=== PATIENT | male | born 1950 | race Caucasian/White ===

== ENCOUNTER 2016-10-17 18:43 | Emergency (ER) | payer MEDICARE ==
[2016-10-17] MEDS ORDERED: Ibuprofen 400 MG Tab PO ONE (19:36)
--- NOTE | 2016-10-17 19:48 | EDM.PDOC ---
ED HPI GENERAL MEDICAL PROBLEM - General Chief Complaint: General Stated Complaint: FEVER,COUGH X 1 WEEK Time Seen by Provider: 10/17/16 19:35 Source of Information: Reports: Patient, Family, Old Records History Limitations: Reports: No Limitations - History of Present Illness INITIAL COMMENTS - FREE TEXT/NARRATIVE: 65 yo male here with fever, cough, mild weakness, and mild SOB. Sx's were present to a lesser degree for several days before he was seen in the clinic 5 days ago and started on Doxycycline for presumed "bronchitis". Has gotten a little worse since then, so comes to the ER. Has not been to the clinic. Cough is dry. Last antipyretics about 5.5 hrs ago(acetaminophen). No rash. Has a mild SMART. No nausea. Mild generalized abdominal discomfort. No urinary sx's. Onset: Gradual Onset Date: 09/27/16 Duration: Day(s):, Constant, Getting Worse Location: Reports: Head, Chest Quality: Reports: Ache (head) Severity: Mild Improves with: Reports: Medication Worsens with: Reports: Other (? time) Context: Reports: Other (unknown) Associated Symptoms: Reports: Cough, Fever/Chills, Headaches, Shortness of Breath (mild), Weakness. Denies: Nausea/Vomiting, Rash, Syncope Treatments PE [employer]ICAL [employer]ER: Reports: Acetaminophen middle abdomen Pain Score (Numeric/FACES): 4 lower back Pain Score (Numeric/FACES): 4 - Related Data Allergies Allergy/AdvReac Type Severity Reaction Status Date / Time hydromorphone HCl AdvReac Hallucinati Verified 10/17/16 19:14 [From Dilaudid] ons Home Meds: Home Meds Acetaminophen [Tylenol Extra Strength] 1 tab PO QID PRN 04/14/14 [History] Aspirin [Adult Low Dose Aspirin EC] 81 mg PO DAILY 04/14/14 [History] Lisinopril/Hydrochlorothiazide [Lisinopril-Hctz 20-12.5 mg Tab] 1 tab PO DAILY 04/14/14 [History] Past Medical History HEENT History: Reports: Impaired Vision Cardiovascular History: Reports: High Cholesterol, Hypertension Respiratory History: Reports: None Genitourinary History: Reports: None Musculoskeletal History: Reports: Back Pain, Chronic, Fracture, Other (See Below ) Other Musculoskeletal History: left wrist fracture/slack wrist Neurological History: Reports: Seizure Psychiatric History: Reports: None Endocrine/Metabolic History: Reports: None Hematologic History: Reports: None Immunologic History: Reports: None Oncologic (Cancer) History: Reports: None Dermatologic History: Reports: None - Infectious Disease History Infectious Disease History: Reports: Chicken Pox - Past Surgical History Head Surgeries/Procedures: Reports: None HEENT Surgical History: Reports: None Cardiovascular Surgical History: Reports: None Respiratory Surgical History: Reports: None GI Surgical History: Reports: Appendectomy, Colonoscopy Endocrine Surgical History: Reports: None Neurological Surgical History: Reports: None Oncologic Surgical History: Reports: None Dermatological Surgical History: Reports: None Social & Family History - Tobacco Use Smoking Status *Q: Never Smoker Second Hand Smoke Exposure: No - Caffeine Use Caffeine Use: Reports: Coffee - Alcohol Use Days Per Week of Alcohol Use: 0 - Recreational Drug Use Recreational Drug Use: No - Living Situation & Occupation Occupation: Other ED ROS GENERAL - Review of Systems Review Of Systems: See Below Constitutional: Reports: Fever, Chills, Malaise, Weakness, Fatigue, Decreased Appetite HEENT: Reports: No Symptoms Respiratory: Reports: Shortness of Breath (mild), Pleuritic Chest Pain, Cough ( dry). Denies: Wheezing, Sputum, Hemoptysis Cardiovascular: Reports: No Symptoms Endocrine: Reports: Fatigue. Denies: Polydypsia, Polyuria GI/Abdominal: Reports: Abdominal Pain (mild, diffuse), Anorexia, Decreased Appetite. Denies: Black Stool, Bloody Stool, Constipation, Diarrhea, Distension , Hematemesis, Hematochezia, Melena, Nausea, Stool Incontinence, Vomiting : Reports: No Symptoms Musculoskeletal: Reports: No Symptoms Skin: Reports: No Symptoms Neurological: Reports: Headache (mild) Psychiatric: Reports: No Symptoms ED EXAM, GENERAL - Physical Exam Exam: See Below Exam Limited By: No Limitations General Appearance: Alert, WD/WN, No Apparent Distress Eye Exam: Bilateral Eye: Normal Inspection, PERRL, Other (no photophobia) Ears: Normal External Exam, Normal Canal, Hearing Grossly Normal, Normal TMs Ear Exam: Bilateral Ear: Auricle Normal, Canal Normal, TM normal Nose: Normal Inspection, Normal Mucosa, No Blood Throat/Mouth: Normal Inspection, Normal Lips, Normal Teeth, Normal Oropharynx, Normal Voice, No Airway Compromise Head: Atraumatic, Normocephalic Neck: Normal Inspection, Supple, Non-Tender, Full Range of Motion Respiratory/Chest: No Respiratory Distress, Lungs Clear, Normal Breath Sounds, No Accessory Muscle Use Cardiovascular: No Edema, Tachycardia GI/Abdominal: Normal Bowel Sounds, Soft, Non-Tender, No Distention Back Exam: Normal Inspection. No: CVA Tenderness (R), CVA Tenderness (L) Extremities: Normal Inspection, Normal Range of Motion, Non-Tender, No Pedal Edema Neurological: Alert, Oriented, CN II-XII Intact, Normal Cognition, No Motor/ Sensory Deficits Psychiatric: Normal Affect, Normal Mood Skin Exam: Warm, Dry, Intact, Normal Color, No Rash Lymphatic: No Adenopathy Course - Vital Signs Last Recorded V/S: Last Vital Signs Temp 38.9 C H 10/17/16 20:51 Pulse 96 10/17/16 20:51 Resp 20 10/17/16 19:19 BP 125/67 10/17/16 20:51 Pulse Ox 90 L 10/17/16 20:51 Orthostatic Blood Pressure [ 90/51 Standing] Orthostatic Blood Pressure [ 129/73 Sitting] Orthostatic Blood Pressure [ 115/70 Supine] - Orders/Labs/Meds Orders: Active Orders 24 hr Category Date Time Status Orthostatic Vital Signs [RC] ASDIRECTED Care 10/17/16 19:42 Active Chest 2V [CR] Stat Exams 10/17/16 19:43 Taken EHRLICHIA CHAFFEENSIS, IGG&IGM [REF] Stat Lab 10/17/16 19:49 Received HEPATITIS PANEL,ACUTE [REF] Stat Lab 10/17/16 19:49 Received Lactated Ringers [Ringers, Lactated] 1,000 ml Med 10/17/16 20:32 Active IV BOLUS Medication Orders Lactated Ringer's (Ringers, Lactated) 1,000 mls @ 1,000 mls/hr IV BOLUS ONE Stop: 10/17/16 21:31 Labs: Laboratory Tests 10/17/16 10/17/16 10/17/16 Range/Units 19:48 19:48 19:48 WBC 7.6 (4.5-11.0) K/uL RBC 4.56 (4.30-5.90) M/uL Hgb 12.4 (12.0-15.0) g/dL Hct 36.9 L (40.0-54.0) % MCV 81 (80-98) fL MCH 27 (27-31) pg MCHC 34 (32-36) % Plt Count 54 L (150-400) K/uL Sodium 131 L (140-148) mmol/L Potassium 3.6 (3.6-5.2) mmol/L Chloride 99 L (100-108) mmol/L Carbon Dioxide 21 (21-32) mmol/L Anion Gap 14.6 H (5.0-14.0) mmol/L BUN 26 H D (7-18) mg/dL Creatinine 1.3 D (0.8-1.3) mg/dL Est Cr Clr Drug Dosing 52.96 mL/min Estimated GFR (MDRD) 55 L (>60) Glucose 122 H (74-106) mg/dL Lactic Acid (0.4-2.0) mmol/L Calcium 8.6 (8.5-10.1) mg/dL AST (15-37) U/L C-Reactive Protein 24.44 H (0.0-0.3) mg/dL Urine Color Urine Appearance Urine pH (4.5-8.0) Ur Specific [place] (1.008-1.030) Urine Protein (NEGATIVE) mg/dL Urine Glucose (UA) (NEGATIVE) mg/dL Urine Ketones (NEGATIVE) mg/dL Urine Occult Blood (NEGATIVE) Urine Nitrite (NEGAITVE) Urine Bilirubin (NEGATIVE) Urine Urobilinogen (NORMAL) mg/dL Ur Leukocyte Esterase (NEGATIVE) Urine RBC (0-5) Urine WBC (0-5) Ur Epithelial Cells Amorphous Sediment Urine Bacteria Urine Mucus 10/17/16 10/17/16 10/17/16 Range/Units 19:49 19:56 20:36 WBC (4.5-11.0) K/uL RBC (4.30-5.90) M/uL Hgb (12.0-15.0) g/dL Hct (40.0-54.0) % MCV (80-98) fL MCH (27-31) pg MCHC (32-36) % Plt Count (150-400) K/uL Sodium (140-148) mmol/L Potassium (3.6-5.2) mmol/L Chloride (100-108) mmol/L Carbon Dioxide (21-32) mmol/L Anion Gap (5.0-14.0) mmol/L BUN (7-18) mg/dL Creatinine (0.8-1.3) mg/dL Est Cr Clr Drug Dosing mL/min Estimated GFR (MDRD) (>60) Glucose (74-106) mg/dL Lactic Acid 1.9 (0.4-2.0) mmol/L Calcium (8.5-10.1) mg/dL AST 94 H (15-37) U/L C-Reactive Protein (0.0-0.3) mg/dL Urine Color [place] Urine Appearance Slightly cloudy Urine pH 5.0 (4.5-8.0) Ur Specific [place] 1.020 (1.008-1.030) Urine Protein Trace (NEGATIVE) mg/dL Urine Glucose (UA) Normal (NEGATIVE) mg/dL Urine Ketones Negative (NEGATIVE) mg/dL Urine Occult Blood Negative (NEGATIVE) Urine Nitrite Negative (NEGAITVE) Urine Bilirubin Small (NEGATIVE) Urine Urobilinogen >=12 H (NORMAL) mg/dL Ur Leukocyte Esterase Negative (NEGATIVE) Urine RBC 0-5 (0-5) Urine WBC 0-5 (0-5) Ur Epithelial Cells Not seen Amorphous Sediment Rare Urine Bacteria Few Urine Mucus Not seen Meds: Medications Generic Name Dose Route Start Last Admin Trade Name Freq PRN Reason Stop Dose Admin Lactated Ringer's 1,000 mls @ 1,000 mls/hr 10/17/16 20:32 Ringers, Lactated IV 10/17/16 21:31 BOLUS ONE Discontinued Medications Generic Name Dose Route Start Last Admin Trade Name Freq PRN Reason Stop Dose Admin Lactated Ringer's 1,000 mls @ 1,000 mls/hr 10/17/16 19:52 10/17/16 19:58 Ringers, Lactated IV 10/17/16 20:51 1,000 mls/hr BOLUS ONE Administration Ibuprofen 400 mg 10/17/16 19:36 10/17/16 19:56 Motrin PO 10/17/16 19:37 400 mg ONETIME ONE Administration - Radiology Interpretation Free Text/Narrative:: CXR-? small nodule RLL, otherwise no acute changes since prior CXR. Departure - Departure Time of Disposition: 22:00 Disposition: Home, Self-Care 01 Condition: Fair Clinical Impression: Elevated LFTs, Febrile illness, acute, Mild dehydration - Discharge Information Referrals: Blake Tubbs MD [Primary Care Provider] - Forms: ED Department Discharge - My Orders Last 24 Hours: My Active Orders 10/17/16 19:42 Orthostatic Vital Signs [RC] ASDIRECTED 10/17/16 19:43 Chest 2V [CR] Stat 10/17/16 19:49 EHRLICHIA CHAFFEENSIS, IGG&IGM [REF] Stat HEPATITIS PANEL,ACUTE [REF] Stat 10/17/16 20:32 Lactated Ringers [Ringers, Lactated] 1,000 ml IV BOLUS - Assessment/Plan Last 24 Hours: My Active Orders 10/17/16 19:42 Orthostatic Vital Signs [RC] ASDIRECTED 10/17/16 19:43 Chest 2V [CR] Stat 10/17/16 19:49 EHRLICHIA CHAFFEENSIS, IGG&IGM [REF] Stat HEPATITIS PANEL,ACUTE [REF] Stat 10/17/16 20:32 Lactated Ringers [Ringers, Lactated] 1,000 ml IV BOLUS
[2016-10-17] MEDS ORDERED: Lactated Ringers 1,000 ML IV ONE ×2 (19:52→20:32)
[2016-10-17 22:22] VITALS: BP 134/78
--- NOTE | 2016-10-18 08:55 | CR ---
Chest 2V HISTORY: Fever, cough. COMPARISON: 04/17/2014. FINDINGS: Cardiac size and pulmonary vessels normal. There are no infiltrates or effusions. No pneumo thorax. The osseous structures appear normal. IMPRESSION: No acute pulmonary disease.
== END 2016-10-17 22:34 | disposition home or self-care (01) ==
LOC: JP.ED 18:43
DX: E86.0 Dehydration (principal); R50.9 Fever, unspecified; R79.89 Other specified abnormal findings of blood chemistry; I10 Essential (primary) hypertension; E78.00 Pure hypercholesterolemia, unspecified; Z79.82 Long term (current) use of aspirin; Z79.899 Other long term (current) drug therapy; Z88.5 Allergy status to narcotic agent; Z90.49 Acquired absence of other specified parts of digestive tract
CPT/HCPCS: 36415; 71020; 80048; 80074; 81001; 83605; 84450; 85027; 86140; 86666; 96360; 96361; 99284; A9270; J7120

== ENCOUNTER 2017-04-03 15:51 | Emergency (ER) | payer MEDICARE ==
--- NOTE | 2017-04-03 16:20 | EDM.PDOC ---
ED HPI GENERAL MEDICAL PROBLEM - General Chief Complaint: Chest Pain Stated Complaint: CHEST PAIN Time Seen by Provider: 04/03/17 16:10 Source of Information: Reports: Patient, RN Notes Reviewed History Limitations: Reports: No Limitations - History of Present Illness INITIAL COMMENTS - FREE TEXT/NARRATIVE: 66-year-old gentleman presents to the emergency department today with complaint of chest pain, he states he's had chest pain for 3 months on and off he describes it is very predictable when he exerts himself he gets pressure in his chest if he stops and rests pressure resolves. He is chest pain-free at this time his biggest concern is that the pain has increased since frequency and severity over the last 2 weeks, he did call for an appointment at the clinic today with the above complaints was instructed him right to the emergency department. Chest Pain Score (Numeric/FACES): 1 - Related Data Allergies Allergy/AdvReac Type Severity Reaction Status Date / Time hydromorphone HCl AdvReac Hallucinati Verified 04/03/17 16:05 [From Dilaudid] ons Home Meds: Home Meds Acetaminophen [Tylenol Extra Strength] 1 tab PO QID PRN 04/14/14 [History] Aspirin [Adult Low Dose Aspirin EC] 81 mg PO DAILY 04/14/14 [History] Lisinopril/Hydrochlorothiazide [Lisinopril-Hctz 20-12.5 mg Tab] 1 tab PO DAILY 04/14/14 [History] Past Medical History HEENT History: Reports: Impaired Vision Cardiovascular History: Reports: High Cholesterol, Hypertension Musculoskeletal History: Reports: Back Pain, Chronic, Fracture, Other (See Below ) Other Musculoskeletal History: left wrist fracture/slack wrist Neurological History: Reports: Seizure - Infectious Disease History Infectious Disease History: Reports: Chicken Pox - Past Surgical History Head Surgeries/Procedures: Reports: None HEENT Surgical History: Reports: None Cardiovascular Surgical History: Reports: None Respiratory Surgical History: Reports: None GI Surgical History: Reports: Appendectomy, Colonoscopy Endocrine Surgical History: Reports: None Neurological Surgical History: Reports: None Oncologic Surgical History: Reports: None Dermatological Surgical History: Reports: None Social & Family History - Tobacco Use Smoking Status *Q: Never Smoker Second Hand Smoke Exposure: No - Caffeine Use Caffeine Use: Reports: Coffee - Alcohol Use Days Per Week of Alcohol Use: 0 - Recreational Drug Use Recreational Drug Use: No - Living Situation & Occupation Occupation: Other ED ROS GENERAL - Review of Systems Review Of Systems: See Below Constitutional: Reports: No Symptoms HEENT: Reports: No Symptoms Respiratory: Reports: No Symptoms Cardiovascular: Reports: Chest Pain GI/Abdominal: Reports: No Symptoms : Reports: No Symptoms Musculoskeletal: Reports: No Symptoms Skin: Reports: No Symptoms Neurological: Reports: No Symptoms ED EXAM, GENERAL - Physical Exam Exam: See Below Free Text/Narrative:: General: Male, not in any distress, alert and oriented x3 HEENT: head is atraumatic normocephalic, eyes pupils equal round reactive to light, sclera clear no conjunctivitis appreciated. Ears blocked by cerumen bilaterally. Nose no septal deviation, nares are clear, no blood present. Mouth mucosa is moist and pink no erythema or exudate noted in soft palate, tongue is midline uvula is midline, dentition is intact. Neck: Supple no thyromegaly no tracheal deviation. Nodes: Cervical nodes subclavicular nodes nontender no palpable lymphadenopathy noted. Lungs: clear to auscultation bilaterally with symmetrical respirations, no adventitious noise appreciated. CV: Regular rate and rhythm S1 and S2 appreciated no murmurs rubs or gallops noted. Abdomen: Soft, nontender, no palpable masses or organomegaly appreciated, no distention no guarding bowel sounds are present, . Neuro: Cranial nerves II through XII grossly intact Skin: Warm and dry, intact Extremities: No lower extremity edema appreciated, Course - Vital Signs Last Recorded V/S: Last Vital Signs Temp 99.0 F 04/03/17 16:07 Pulse 70 04/03/17 17:49 Resp 12 04/03/17 17:49 BP 149/83 H 04/03/17 17:49 Pulse Ox 95 04/03/17 17:49 - Orders/Labs/Meds Orders: Active Orders 24 hr Category Date Time Status Cardiac Monitoring [RC] .As Directed Care 04/03/17 16:16 Active EKG Documentation Completion [RC] ASDIRECTED Care 04/03/17 16:17 Active Peripheral IV Care [RC] . DIRECTED Care 04/03/17 18:03 Ordered Chest 2V [CR] Stat Exams 04/03/17 16:17 Taken Sodium Chloride 0.9% [Saline Flush] Med 04/03/17 18:03 Ordered 10 ml FLUSH ASDIRECTED PRN Peripheral IV Insertion Adult [OM.PC] Urgent Oth 04/03/17 18:03 Ordered EKG 12 Lead [EK] Stat Ther 04/03/17 16:17 Ordered Medication Orders Sodium Chloride (Saline Flush) 10 ml FLUSH ASDIRECTED PRN PRN Reason: Keep Vein Open Labs: Laboratory Tests 04/03/17 04/03/17 Range/Units 16:16 16:16 WBC 8.7 (4.5-11.0) K/uL RBC 4.91 (4.30-5.90) M/uL Hgb 14.3 (12.0-15.0) g/dL Hct 42.7 (40.0-54.0) % MCV 87 (80-98) fL MCH 29 (27-31) pg MCHC 34 (32-36) % Plt Count 235 (150-400) K/uL Neut % (Auto) 54 (36-66) % Lymph % (Auto) 33 (24-44) % [place] % (Auto) 9 H (2-6) % Eos % (Auto) 4 (2-4) % Baso % (Auto) 1 (0-1) % Sodium 138 L (140-148) mmol/L Potassium 4.1 (3.6-5.2) mmol/L Chloride 102 (100-108) mmol/L Carbon Dioxide 26 (21-32) mmol/L Anion Gap 14.1 H (5.0-14.0) mmol/L BUN 29 H (7-18) mg/dL Creatinine 1.0 (0.8-1.3) mg/dL Est Cr Clr Drug Dosing 71.48 mL/min Estimated GFR (MDRD) > 60 (>60) Glucose 110 H (74-106) mg/dL Calcium 9.6 (8.5-10.1) mg/dL Total Bilirubin 0.4 (0.2-1.0) mg/dL AST 19 D (15-37) U/L ALT 30 (12-78) U/L Alkaline Phosphatase 61 (46-116) U/L Troponin I < 0.017 (0.000-0.056) ng/mL Total Protein 6.8 (6.4-8.2) g/dL Albumin 3.7 (3.4-5.0) g/dL Globulin 3.1 (2.3-3.5) g/dL Albumin/Globulin Ratio 1.2 (1.2-2.2) Meds: Medications Generic Name Dose Route Start Last Admin Trade Name Freq PRN Reason Stop Dose Admin Sodium Chloride 10 ml 04/03/17 18:03 Saline Flush FLUSH ASDIRECTED PRN Keep Vein Open Discontinued Medications Generic Name Dose Route Start Last Admin Trade Name Freq PRN Reason Stop Dose Admin Aspirin 324 mg 04/03/17 18:03 Aspirin PO 04/03/17 18:04 ONETIME ONE Departure - Departure Time of Disposition: 18:07 Disposition: DC/Tfer to Acute Hospital 02 Reason for Transfer *Q: Other Condition: Fair Clinical Impression: Chest pain Qualifiers: Chest pain type: unspecified Qualified Code(s): R07.9 - Chest pain, unspecified Referrals: Blake Tubbs MD [Primary Care Provider] - Forms: ED Department Discharge Additional Instructions: Please report to [facility] for admission - My Orders Last 24 Hours: My Active Orders 04/03/17 16:16 Cardiac Monitoring [RC] .As Directed 04/03/17 16:17 EKG Documentation Completion [RC] ASDIRECTED Chest 2V [CR] Stat EKG 12 Lead [EK] Stat 04/03/17 18:03 Peripheral IV Care [RC] . DIRECTED Sodium Chloride 0.9% [Saline Flush] 10 ml FLUSH ASDIRECTED PRN Peripheral IV Insertion Adult [OM.PC] Urgent - Assessment/Plan Last 24 Hours: My Active Orders 04/03/17 16:16 Cardiac Monitoring [RC] .As Directed 04/03/17 16:17 EKG Documentation Completion [RC] ASDIRECTED Chest 2V [CR] Stat EKG 12 Lead [EK] Stat 04/03/17 18:03 Peripheral IV Care [RC] . DIRECTED Sodium Chloride 0.9% [Saline Flush] 10 ml FLUSH ASDIRECTED PRN Peripheral IV Insertion Adult [OM.PC] Urgent Plan: Assessment Acuity = chronic Site and laterality = chest pain Etiology = unclear etiology concern for cardiac Manifestations = none Location of injury = Home Lab values = CBC, CMP, troponin all negative, EKG demonstrates normal sinus rhythm, chest x-ray shows no acute process official read radiology is pending Plan Called discussed case with Dr. Dee hospitalist pressure control supervisor at [facility] kindly accepted the patient for further evaluation. He was given 324 mg of aspirin while in the emergency department I discussed with him the use of EMS services for transport to [place] the patient declined he is going to transport himself via private vehicle and report to the hospital for further evaluation This note was dictated using [employer] voice recognition software please call with any questions on syntax or shy.
[2017-04-03 17:50] VITALS: BP 149/83
[2017-04-03] MEDS ORDERED: Aspirin 81 MG Tab.Chew PO ONE (18:03)
[2017-04-03] MEDS ORDERED: Sodium Chloride 0.9% 10 ML Syringe FLUSH PRN (18:03)
--- NOTE | 2017-04-04 08:31 | CR ---
Chest 2V HISTORY: Chest Pain COMPARISON: 10/17/2016 FINDINGS: Lungs appear clear and normally aerated. Cardiomediastinal silhouette is within normal limits. No vas cular redistribution or pleural fluid can be seen. Mild diffuse degenerative changes are noted along the thoracic spine. IMPRESSION: No acute chest abnormality or significant interval change is identified.
== END 2017-04-03 18:24 ==
LOC: JP.ED 15:51
DX: R07.9 Chest pain, unspecified (principal); E78.00 Pure hypercholesterolemia, unspecified; I10 Essential (primary) hypertension; Z88.5 Allergy status to narcotic agent; Z79.82 Long term (current) use of aspirin; Z79.899 Other long term (current) drug therapy
CPT/HCPCS: 36415; 71046; 80053; 84484; 85025; 93005; 99285; A9270; J7050

== ENCOUNTER 2020-04-07 08:24 | Day surgery (SDC) | payer MEDICARE ==
[~2020-04-07 08:24] MED LIST: Bupivacaine 0.5% 50 ML MDV ONE; Lidocaine 1% with EPINEPHrine 1:100,000 50 ML MDV ONE
[2020-04-07] MEDS ORDERED: Acetaminophen 500 MG Tab PO ONE ×2 (08:45→13:30)
[2020-04-07] MEDS ORDERED: Dextrose 5%-Lactated Ringers 1,000 ML IV SCH (09:30)
[2020-04-07] MEDS ORDERED: Clindamycin Phosphate 900 MG in Sodium Chloride 0.9% 100 ML IV ONE (10:15)
[2020-04-07] MEDS ORDERED: Succinylcholine 200 MG/10 ML MDV ONE (10:22)
[2020-04-07] MEDS ORDERED: Glycopyrrolate 0.2 MG/ML 5 ML MDV ONE (10:22)
[2020-04-07] MEDS ORDERED: Propofol 200 MG/20 ML SDV ONE (10:22)
[2020-04-07] MEDS ORDERED: Rocuronium 50 MG/5 ML Vial ONE (10:22)
[2020-04-07] MEDS ORDERED: Neostigmine Methylsulfate 1 MG/ML 5 ML Syringe ONE (10:22)
[2020-04-07] MEDS ORDERED: Dexamethasone 4 MG/ML SDV ONE (10:22)
[2020-04-07] MEDS ORDERED: Ondansetron 4 MG/2 ML SDV ONE (10:22)
[2020-04-07] MEDS ORDERED: fentaNYL 250 MCG/5 ML SDV ONE (10:24)
[2020-04-07] MEDS ORDERED: Sugammadex Sodium 200 MG/2 ML VIAL ONE (11:20)
[2020-04-07] MEDS ORDERED: Ibuprofen 400 MG Tab PO ONE (12:30)
[2020-04-07 13:52] VITALS: BP 133/76; PULSE 60
--- NOTE | 2020-04-10 18:20 | OR ---
DATE OF PROCEDURE: 04/07/2020 SURGEON: Kyle Hassan MD PREOPERATIVE DIAGNOSIS: Infected mass, right mid back. POSTOPERATIVE DIAGNOSIS: Infected mass, right mid back with subfascial extension. OPERATIVE PROCEDURE: Excision of infected mass of right mid back with subfascial extension ([id number]). ANESTHESIA: General. TELECOMMUNICATIONS CABLE JOINTER: CHRISTOPHER Brooks student INDICATION FOR PROCEDURE: A 69-year-old presenting with a large infected mass with some purulent drainage from the mid upper back on the right side. The plan is to proceed with excision of this with leaving an open wound for a planned secondary healing. The potential risks of the procedure were reviewed with the patient and including further bleeding and infection, recurrence of process over time were all reviewed and the patient wishes to proceed. DETAILS OF PROCEDURE: The patient was taken to the operating room and placed in the supine position. After general endotracheal anesthesia was induced, he was converted to a prone position, and the back area was then prepped and draped. An elliptical incision in the long axis of the mass was then made. The elliptical incision was carried down through the skin and subcutaneous tissue what appeared to be some epidermoid cyst-type material was encountered during the course of the dissection. All the cyst cavity appeared to be removed. Medially the cyst extended underneath the muscular fascia, i.e., subfascial component and otherwise was removed in what appeared to be intact manner. Cultures of the purulent material were obtained. The patient had some bleeding points which were suture ligated with 3-0 Vicryl stitch, and the wound was anesthetized with 1% lidocaine mixed with Marcaine. The lesion in length was 8.5 cm, and the wound was then packed open with iodoform gauze. The patient was taken to the recovery room in satisfactory condition. Kyle Hassan MD /[id number]
== END 2020-04-07 15:02 | disposition home or self-care (01) ==
LOC: JP.SDS 08:24
PROVIDERS: ATTEND Surgery
DX: L72.0 Epidermal cyst (principal); L02.212 Cutaneous abscess of back [any part, except buttock and flank]; I10 Essential (primary) hypertension; I25.10 Atherosclerotic heart disease of native coronary artery without angina pectoris; E66.9 Obesity, unspecified; Z01.812 Encounter for preprocedural laboratory examination; Z20.822 Contact with and (suspected) exposure to COVID-19; Z79.82 Long term (current) use of aspirin; Z79.899 Other long term (current) drug therapy; Z88.5 Allergy status to narcotic agent; Z95.5 Presence of coronary angioplasty implant and graft; Z68.28 Body mass index [BMI] 28.0-28.9, adult
CPT/HCPCS: 11406; 36415; 80048; 83735; 84100; 87070; 87075; 87205; 93005; A9270; J0330; J1100; J2405; J2704; J2710; J3010; J3490; J7121; U0002